=== PATIENT | female | born 2000 | race Hispanic/Latino ===

== ENCOUNTER 2023-10-18 20:19 | Emergency (ER) | payer SELFPAY ==
[2023-10-18] MEDS ORDERED: Sulfameth/Trimethoprim DS 800-160mg TAB ONE (20:34)
[2023-10-18] MEDS ORDERED: Ibuprofen 800 MG TAB ONE (20:34)
[2023-10-18] MEDS ORDERED: HYDROcodone/Acetaminophen 10/325 mg Tablet ONE (20:35)
== END 2023-10-18 21:15 | disposition home or self-care (01) ==
LOC: NAV ERS 20:19
DX: L03.115 Cellulitis of right lower limb (principal)

== ENCOUNTER 2024-12-26 04:35 | Emergency (ER) | payer SELFPAY ==
[2024-12-26] MEDS ORDERED: Famotidine/PF 20 mg/2ml Vial ONE (05:23)
[2024-12-26 05:43] LABS: #Basophils 0.1 thou/uL (0.0-0.2); #Eosinophils 0.1 thou/uL (0.0-0.7); #Lymphocytes 1.3 thou/uL (1.20-3.40); #Monocytes 0.4 thou/uL (0.11-0.59); #Neutrophils 5.4 thou/uL (1.40-6.50); %Basophils 0.7 % (0.0-1.0); %Eosinophils 1.2 % (0.0-10.0); %Lymphocytes 18.2 % (21.0-51.0); %Monocytes 5.7 % (0.0-10.0); %Neutrophils 74.1 % (42.0-75.0); Hematocrit 33.9 % (36.0-47.0); Hemoglobin 12.0 g/dL (12.0-16.0); Mean Corpuscular Hemoglobin 28.0 pg (27.0-31.0); Mean Corpuscular Volume 79.2 fl (78.0-98.0); Platelet Count 389 10x3/uL (130-400); Red Blood Cell (RBC) Count 4.28 mill/uL (4.20-5.40); White Blood Cell (WBC) Count 7.3 10x3/uL (4.8-10.8)
[2024-12-26 05:45] LABS: BHCG - Serum Negative (NEGATIVE); Pregs Control Bar Appear? YES (CONTROL BAR)
[2024-12-26 05:51] LABS: ALT (SGPT) 29 U/L (Less than 34); AST (SGOT) 20 U/L (11-34); Albumin 3.7 g/dL (3.1-4.5); Alkaline Phosphatase 86 U/L (40-110); Anion Gap 15 mmol/L (10-20); BUN (Urea Nitrogen) 13 mg/dL (7.0-18.7); Bilirubin, Total 0.2 mg/dL (0.3-1.2); Calc. Creatinine Clearance 0 mL/min (70-130); Calcium 8.9 mg/dL (7.8-10.44); Carbon Dioxide 20 mmol/L (22-29); Chloride 106 mmol/L (98-107); Globulin 3.6 g/dL (2.4-3.5); Glucose 111 mg/dL (70-105); Lipase 39 U/L (8-78); Potassium 4.1 mmol/L (3.5-5.1); Sodium 137 mmol/L (136-145)
[2024-12-26] MEDS ORDERED: Mag-Al Plus 1200/1200/120 MG (30 mL) UDCUP ONE (06:49)
[2024-12-26] MEDS ORDERED: Lidocaine Viscous Sol 2% 15 ml UD Cup ONE (06:49)
== END 2024-12-26 07:08 | disposition home or self-care (01) ==
LOC: NAV ERS 04:35
DX: K29.00 Acute gastritis without bleeding (principal); Z55.6 Problems related to health literacy
CPT/HCPCS: 80053; 83690; 84703; 85025; 96361; 96374; J1308; J7030